=== PATIENT | male | born 1990 | race Asian ===

== ENCOUNTER 2021-03-21 18:42 | Emergency (ER) | payer OTHER ==
[~2021-03-21] VITALS: Ht 157.5 cm; Wt 77.3 kg
[2021-03-21 19:28] VITALS: BP 129/72
== END 2021-03-21 19:47 | disposition home or self-care (01) ==
LOC: EMS 18:46
DX: M10.9 Gout, unspecified (principal); M25.562 Pain in left knee
CPT/HCPCS: 99283; Z7502